=== PATIENT | male | born 1985 | race Two or more races ===

== ENCOUNTER 2018-09-29 18:22 | Emergency (ER) | payer OTHER ==
[2018-09-29] MEDS ORDERED: KETOROLAC TROMETHAMINE 60 MG/2 ML SDV IM ONE (19:12)
[2018-09-29] MEDS ORDERED: ONDANSETRON 4 MG TAB.RAPDIS PO ONE (19:13)
[2018-09-29] MEDS ORDERED: HYDROMORPHONE HCL INJ/PF 2 MG/ML AMPULE SUBCUT ONE (19:13)
--- NOTE | 2018-09-29 20:07 | RADIOLOGY REPORT (SQ) ---
EXAM DESCRIPTION: XR SHOULDER 2 OR MORE VIEWS COMPLETED DATE/TME: 09/29/2018 19:13 CLINICAL HISTORY: 33 years, Male, injury COMPARISON: None. EXAM DESCRIPTION: CLINICAL HISTORY: injury COMPARISON: None FINDINGS: 3 view(s) submitted. No fracture or dislocation is identified. Bone marrow attenuation is unremarkable. No radiopaque foreign body is identified. IMPRESSION: No acute fracture or dislocation.
--- NOTE | 2018-09-29 20:54 | ER Document Report ---
ED General - General Chief Complaint: Shoulder Injury Stated Complaint: FALL/SHOULDER PAIN Time Seen by Provider: 09/29/18 18:57 Primary Care Provider: [facility] FLAHERTY [facility] [Primary Care Provider] - Follow up as needed Mode of Arrival: Ambulatory Information source: Patient TRAVEL OUTSIDE OF THE [place] IN LAST 30 DAYS: No - HPI Patient complains to provider of: Right shoulder injury Onset: Just prior to arrival Onset/Duration: Sudden Quality of pain: Sharp Severity: Severe Pain Level: 5 Associated symptoms: None Exacerbated by: Denies Relieved by: Denies Similar symptoms previously: No Recently seen / treated by doctor: No Notes: 33-year-old male coming in today with right shoulder injury. 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 Initially rather tachycardic and blood pressure high. History of hypertension in the past and being treated by his primary care doctor. No chest pain, no shortness of breath. - Related Data Allergies/Adverse Reactions: No Known Allergies Allergy (Unverified 09/29/18 19:13) Past Medical History - General Information source: Patient - Social History Smoking Status: Never Smoker Chew tobacco use (# tins/day): No Frequency of alcohol use: None Drug Abuse: None Family History: Reviewed & Not Pertinent Patient has suicidal ideation: No Patient has homicidal ideation: No - Past Medical History Cardiac Medical History: Reports: Hx Hypertension Renal/ Medical History: Denies: Hx Peritoneal Dialysis Review of Systems - Review of Systems Notes: Constitutional: No fevers. No chills. EENT: No eye redness. No eye pain. No ear pain. No sore throat. Cardiovascular: No chest pain. No palpitations. Respiratory: No cough. No shortness of breath. No respiratory distress. Gastrointestinal: No abdominal pain. No nausea, vomiting, or diarrhea. Genitourinary: Atraumatic. No lesions. No pain. No discharge. Musculoskeletal: Positive for right shoulder pain Skin: No rash or lesions. Lymphatic: No swollen lymph nodes. Neurologic: No headache. No syncope. Psychiatric: No suicidal or homicidal ideation. Physical Exam - Vital signs Vitals: Temp Pulse Resp BP Pulse Ox 98.6 F 120 H 18 218/136 H 100 09/29/18 18:57 09/29/18 18:57 09/29/18 18:57 09/29/18 18:57 09/29/18 18:57 - Notes Notes: General: Well-developed, well-nourished. In no acute distress. Non-toxic appearing. Cardiac: Well-perfused. Regular rate and rhythm. No murmurs, rubs, or gallops. Pulmonary: No respiratory distress. No cyanosis. Bilateral lung morales are clear to auscultation. Abdominal: Non-distended. Non-rigid. Bowels sounds are present in all four quadrants. No guarding or rebound. HEENT: Head is atraumatic. Conjunctivae not reddened. No tearing. PERRL. EOMI. Orbits atraumatic. No periorbital swelling or erythema. Oropharynx is without erythema, swelling, or exudates. Neck: Supple. No adenopathy. No meningismus. Dermatologic: Warm with good turgor. No rash. Atraumatic. Chest: Atraumatic. No chest wall tenderness to palpation. Musculoskeletal: Diffuse right shoulder tenderness without deformity. Mild skin abrasions. Decreased abduction and decreased elevation secondary to pain distal neurovascular exam is intact Genitourinary: Examination deferred Neurologic: No gross neurologic deficits. Psychiatric: Normal mood. Course - Re-evaluation Re-evalutation: 09/29/18 20:54 Patient has a history of hypertension. His blood pressure initially was 218/136. He is come down quite a bit but is still elevated. He has no chest pain or shortness of breath. Initially was tachycardic at 120. He is now in the 90s. I will give him a sling and some Ultracet for his shoulder pain and then he can follow-up as needed with orthopedics and also see his regular doctor for a blood pressure recheck - Vital Signs Vital signs: Temp Pulse Resp BP Pulse Ox 98.6 F 120 H 15 173/119 H 96 09/29/18 18:57 09/29/18 18:57 09/29/18 20:15 09/29/18 20:16 09/29/18 20:15 Discharge - Discharge Clinical Impression: Elevated blood pressure reading Shoulder injury Qualifiers: Encounter type: initial encounter Laterality: right Qualified Code(s): S49.91XA - Unspecified injury of right shoulder and upper arm, initial encounter Condition: Good Disposition: HOME, SELF-CARE Instructions: Oral Narcotic Medication ([facility]), Sling as Treatment ([facility]), Shoulder Injury ([facility]) Additional Instructions: Please follow-up with the orthopedic doctor assigned in 1 week if not better using the sling. Remove the sling daily to make sure that your shoulder does not stiffen up. Ibuprofen as needed for pain. Ultracet as needed for moderate to severe pain. You may return to work on Tuesday Prescriptions: Tramadol HCl/Acetaminophen [Ultracet 37.5 mg/325 mg Tablet] 1 each PO Q6HP PRN #15 tablet PRN Reason: Forms: Elevated Blood Pressure Referrals: [facility] FLA[facility]ERTY [facility] [Primary Care Provider] - Follow up as needed JACY HOWELL MD [ACTIVE STAFF] - Follow up in 1 week
[2018-09-29] MEDS ORDERED: METOCLOPRAMIDE HCL INJ/PF 10 MG/2 ML SDV IM ONE (21:07)
[2018-09-29 21:22] VITALS: BP 169/122
== END 2018-09-29 21:30 | disposition home or self-care (01) ==
LOC: ER 18:22
DX: S49.91XA Unspecified injury of right shoulder and upper arm, initial encounter (principal); M25.511 Pain in right shoulder; I10 Essential (primary) hypertension; W19.XXXA Unspecified fall, initial encounter
CPT/HCPCS: 99283; 96372; 73030; L3650; J1885; S0119; J1170